=== PATIENT | female | born 1975 | race Caucasian/White ===

== ENCOUNTER 2022-11-26 13:49 | Emergency (ER) | payer OTHER ==
[2022-11-26 13:55] VITALS: BP 170/98; PULSE 97; RESP 18; TEMP 97.5
[2022-11-26] MEDS ORDERED: FUROSEMIDE 10 MG/ML 4 ML VIAL IV STA (16:28)
[2022-11-26 17:51] LABS: Basophils % (A) 0 %; Eosinophils # (A) 0.2 k/uL (0-0.7); Eosinophils % (A) 2 %; HCT 35.2 % (34.0-46.0); HGB 11.1 gm/dL (11.4-16.0); Lymphocytes % (A) 24 %; MCH 24.2 pg (25.0-35.0); MCHC 31.6 g/dL (31.0-37.0); MCV 76.7 fL (80.0-100.0); Mean Platelet Volume 6.9; Microcytosis Slight; Monocytes # (A) 0.5 k/uL (0-1.0); Monocytes % (A) 7 %; Neutrophils # (A) 5.4 k/uL (1.3-7.7); Neutrophils % (A) 64 %; Platelet Count 324 k/uL (150-450); RBC 4.58 m/uL (3.80-5.40); RDW 15.7 % (11.5-15.5); WBC 8.3 k/uL (3.8-10.6)
[2022-11-26 17:59] LABS: Albumin 4.1 g/dL (3.5-5.0); Calcium 9.1 mg/dL (8.4-10.2); Potassium 4.3 mmol/L (3.5-5.1); Total Bilirubin 0.3 mg/dL (0.2-1.3); Total Protein 7.3 g/dL (6.3-8.2)
--- NOTE | 2022-11-26 18:08 | ED ---
General Adult HPI - General Chief complaint: Extremity Injury, Lower Stated complaint: Leg Swelling Time Seen by Provider: 11/26/22 16:21 Source: patient, RN notes reviewed Mode of arrival: EMS Limitations: no limitations - History of Present Illness Initial comments: 47-year-old female with no significant past medical history presents the emergency department with bilateral leg swelling. She noticed her symptoms started approximately a week and half ago. She reports that she presented to the ED today because he has not gotten better. She denies any trauma or injury. She denies any chest pain, shortness of breath, dyspnea, abdominal pain, nausea, vomiting. - Related Data Allergies Allergy/AdvReac Type Severity Reaction Status Date / Time No Known Allergies Allergy Verified 11/26/22 13:55 Review of Systems ROS Statement: Those systems with pertinent positive or pertinent negative responses have been documented in the HPI. ROS Other: All systems not noted in ROS Statement are negative. Past Medical History Past Medical History: No Reported History Past Surgical History: No Surgical Hx Reported Past Psychological History: Anxiety Smoking Status: Current every day smoker Past Alcohol Use History: None Reported Past Drug Use History: None Reported General Exam Limitations: no limitations General appearance: alert, in no apparent distress Head exam: Present: atraumatic, normocephalic, normal inspection Eye exam: Present: normal appearance, PERRL, EOMI. Absent: scleral icterus, conjunctival injection, periorbital swelling ENT exam: Present: normal exam, mucous membranes moist Neck exam: Present: normal inspection. Absent: tenderness, meningismus, lymphadenopathy Respiratory exam: Present: normal lung sounds bilaterally. Absent: respiratory distress, wheezes, rales, rhonchi, stridor Cardiovascular Exam: Present: regular rate, normal rhythm, normal heart sounds. Absent: systolic murmur, diastolic murmur, rubs, gallop, clicks GI/Abdominal exam: Present: soft, normal bowel sounds. Absent: distended, tenderness, guarding, rebound, rigid Extremities exam: Present: normal inspection, full ROM, normal capillary refill, other (bilateral lower extremity edema, DT/PT pulses 2+ bilaterally abdomen sign negative). Absent: tenderness, pedal edema, joint swelling, calf tenderness Back exam: Present: normal inspection Neurological exam: Present: alert, oriented X3, CN II-XII intact Psychiatric exam: Present: normal affect, normal mood Skin exam: Present: warm, dry, intact, normal color. Absent: rash Course Vital Signs 11/26/22 13:53 Temperature 97.5 F L Pulse Rate 97 Respiratory 18 Rate Blood Pressure 170/98 O2 Sat by Pulse 98 Oximetry - Reevaluation(s) Reevaluation #1: 11/26/22 18:07 Patient notified provider that she would like to use AGAINST MEDICAL ADVICE. Medical Decision Making - Lab Data Result diagrams: 11/26/22 17:34 11/26/22 17:34 Lab Results 11/26/22 11/26/22 11/26/22 Range/Units 17:34 17:34 17:34 WBC 8.3 (3.8-10.6) k/uL RBC 4.58 (3.80-5.40) m/uL Hgb 11.1 L (11.4-16.0) gm/dL Hct 35.2 (34.0-46.0) % MCV 76.7 L (80.0-100.0) fL MCH 24.2 L (25.0-35.0) pg MCHC 31.6 (31.0-37.0) g/dL RDW 15.7 H (11.5-15.5) % Plt Count 324 (150-450) k/uL MPV 6.9 Neutrophils % 64 % Lymphocytes % 24 % Monocytes % 7 % Eosinophils % 2 % Basophils % 0 % Neutrophils # 5.4 (1.3-7.7) k/uL Lymphocytes # 2.0 (1.0-4.8) k/uL Monocytes # 0.5 (0-1.0) k/uL Eosinophils # 0.2 (0-0.7) k/uL Basophils # 0.0 (0-0.2) k/uL Microcytosis Slight PT 9.7 (9.0-12.0) sec INR 0.9 (<1.2) APTT 22.1 (22.0-30.0) sec Sodium 138 (137-145) mmol/L Potassium 4.3 (3.5-5.1) mmol/L Chloride 105 (98-107) mmol/L Carbon Dioxide 26 (22-30) mmol/L Anion Gap 7 mmol/L BUN 19 H (7-17) mg/dL Creatinine 0.95 (0.52-1.04) mg/dL Est GFR (CKD-EPI)AfAm 84 (>60 ml/min/1.73 sqM) Est GFR (CKD-EPI)NonAf 73 (>60 ml/min/1.73 sqM) Glucose 98 (74-99) mg/dL Calcium 9.1 (8.4-10.2) mg/dL Total Bilirubin 0.3 (0.2-1.3) mg/dL AST 26 (14-36) U/L ALT 28 (4-34) U/L Alkaline Phosphatase 55 (38-126) U/L Troponin I (0.000-0.034) ng/mL NT-Pro-B Natriuret Pep pg/mL Total Protein 7.3 (6.3-8.2) g/dL Albumin 4.1 (3.5-5.0) g/dL 11/26/22 11/26/22 Range/Units 17:34 17:34 WBC (3.8-10.6) k/uL RBC (3.80-5.40) m/uL Hgb (11.4-16.0) gm/dL Hct (34.0-46.0) % MCV (80.0-100.0) fL MCH (25.0-35.0) pg MCHC (31.0-37.0) g/dL RDW (11.5-15.5) % Plt Count (150-450) k/uL MPV Neutrophils % % Lymphocytes % % Monocytes % % Eosinophils % % Basophils % % Neutrophils # (1.3-7.7) k/uL Lymphocytes # (1.0-4.8) k/uL Monocytes # (0-1.0) k/uL Eosinophils # (0-0.7) k/uL Basophils # (0-0.2) k/uL Microcytosis PT (9.0-12.0) sec INR (<1.2) APTT (22.0-30.0) sec Sodium (137-145) mmol/L Potassium (3.5-5.1) mmol/L Chloride (98-107) mmol/L Carbon Dioxide (22-30) mmol/L Anion Gap mmol/L BUN (7-17) mg/dL Creatinine (0.52-1.04) mg/dL Est GFR (CKD-EPI)AfAm (>60 ml/min/1.73 sqM) Est GFR (CKD-EPI)NonAf (>60 ml/min/1.73 sqM) Glucose (74-99) mg/dL Calcium (8.4-10.2) mg/dL Total Bilirubin (0.2-1.3) mg/dL AST (14-36) U/L ALT (4-34) U/L Alkaline Phosphatase (38-126) U/L Troponin I <0.012 (0.000-0.034) ng/mL NT-Pro-B Natriuret Pep 75 pg/mL Total Protein (6.3-8.2) g/dL Albumin (3.5-5.0) g/dL Disposition Clinical Impression: Leg swelling Disposition: Left Against Medical Advice Condition: Undetermined Is patient prescribed a controlled substance at d/c from ED?: No Referrals: None,Stated [Primary Care Provider] - 1-2 days Time of Disposition: 18:08
[2022-11-26 18:17] LABS: INR 0.9 (<1.2); Partial Thromboplastin Time 22.1 sec (22.0-30.0); Prothrombin Time 9.7 sec (9.0-12.0)
== END 2022-11-26 18:08 | disposition left against medical advice (07) ==
LOC: EC 13:49
DX: M79.89 Other specified soft tissue disorders (principal); F41.9 Anxiety disorder, unspecified; F17.200 Nicotine dependence, unspecified, uncomplicated; Z53.29 Procedure and treatment not carried out because of patient's decision for other reasons
CPT/HCPCS: 36415; 83880; 80053; 84484; 85025; 85610; 85730; 99283; 96374; J1940

== ENCOUNTER 2024-03-06 17:18 | Emergency (ER) | payer OTHER ==
[2024-03-06 17:24] VITALS: RESP 18; TEMP 98.6
--- NOTE | 2024-03-06 18:06 | ED ---
Upper Extremity HPI - General Chief Complaint: Extremity Injury, Upper Stated Complaint: R Arm Pain Time Seen by Provider: 03/06/24 17:32 Source: patient, RN notes reviewed Mode of arrival: ambulatory Limitations: no limitations - History of Present Illness Initial Comments: This is a 48-year-old female presents emergency department chief complaint of ri ght upper extremity paresthesias of the hands over the past few weeks. Patient states that she is also noticing loss of motor function of the right hand. States that the paresthesias extremity. She denies any recent injury or trauma to the right upper extremity. She denies fevers chest pain or pressure, dizziness, lightheadedness. He denies personal history of AR, CVA, blood clots. - Related Data Allergies Allergy/AdvReac Type Severity Reaction Status Date / Time No Known Allergies Allergy Verified 03/06/24 17:23 Review of Systems ROS Statement: Those systems with pertinent positive or pertinent negative responses have been documented in the HPI. ROS Other: All systems not noted in ROS Statement are negative. Past Medical History Past Medical History: No Reported History Past Surgical History: No Surgical Hx Reported Past Psychological History: Anxiety, Bipolar Smoking Status: Current every day smoker Past Alcohol Use History: None Reported Past Drug Use History: None Reported General Exam Limitations: no limitations General appearance: alert, in no apparent distress Head exam: Present: atraumatic, normocephalic, normal inspection Eye exam: Present: normal appearance, PERRL, EOMI. Absent: scleral icterus, conjunctival injection, periorbital swelling ENT exam: Present: normal exam, mucous membranes moist Neck exam: Present: normal inspection. Absent: tenderness, meningismus, lymphadenopathy Respiratory exam: Present: normal lung sounds bilaterally. Absent: respiratory distress, wheezes, rales, rhonchi, stridor Cardiovascular Exam: Present: regular rate, normal rhythm, normal heart sounds. Absent: systolic murmur, diastolic murmur, rubs, gallop, clicks GI/Abdominal exam: Present: soft, normal bowel sounds. Absent: distended, tenderness, guarding, rebound, rigid Right Hand Wrist exam: Present: other (parasthesias) Neuro motor exam: Present: wrist extension intact Vascular: Present: normal capillary refill. Absent: vascular compromise Back exam: Present: normal inspection Neurological exam: Present: other (right hand parasthesias with radiation into the antecubtial fossa. ) Skin exam: Present: warm, dry, intact, normal color. Absent: rash Course Vital Signs 03/06/24 03/06/24 17:19 19:00 Temperature 98.6 F Pulse Rate 103 H 95 Respiratory 18 18 Rate Blood Pressure 181/83 147/90 O2 Sat by Pulse 99 100 Oximetry Medical Decision Making - Medical Decision Making Was pt. sent in by a medical professional or institution (ENZO Whaley, COMPENSATION SPECIALIST, urgent care, hospital, or halfway...) When possible be specific @ -No Did you speak to anyone other than the patient for history (EMS, parent, family, police, friend...)? What history was obtained from this source @ -No Did you review nursing and triage notes (agree or disagree)? Why? @ -I reviewed and agree with nursing and triage notes Were old charts reviewed (outside hosp., previous admission, EMS record, old EKG, old radiological studies, urgent care reports/EKG's, halfway records)? Report findings @ -No old charts were reviewed Differential Diagnosis (chest pain, altered mental status, abdominal pain women, abdominal pain men, vaginal bleeding, weakness, fever, dyspnea, syncope, headache, dizziness, GI bleed, back pain, seizure, CVA, palpatations, mental health, musculoskeletal)? @ -ulnar nerve compression, radial nerve compression, carpal tunnel syndrome, cervical radiculopathy, cirrhosis, increase EKG interpreted by me (3pts min.). @ -None X-rays interpreted by me (1pt min.). @ -X-ray of the right hand and right forearm reveals no evidence for acute osseous abnormalities. CT interpreted by me (1pt min.). @ -None done U/S interpreted by me (1pt. min.). @ -None done What testing was considered but not performed or refused? (CT, X-rays, U/S, labs)? Why? @ -None What meds were considered but not given or refused? Why? @ -None Did you discuss the management of the patient with other professionals (professionals i.e. ENZO Whaley, COMPENSATION SPECIALIST, lab, RT, psych nurse, social problems specialist, wet end operator, teacher, risk officer, case making machine operator)? Give summary @ -No Was smoking cessation discussed for >3mins.? @ -No Was critical care preformed (if so, how long)? @ -No Were there social determinants of health that impacted care today? How? (Homelessness, low income, unemployed, alcoholism, drug addiction, transportation, low edu. Level, literacy, decrease access to med. care, senior care, rehab)? @ -No Was there de-escalation of care discussed even if they declined (Discuss DNR or withdrawal of care, Hospice)? DNR status @ -No What co-morbidities impacted this encounter? (DM, HTN, Smoking, COPD, CAD, Cancer, CVA, ARF, Chemo, Hep., AIDS, mental health diagnosis, sleep apnea, morbid obesity)? @ -None Was patient admitted / discharged? Hospital course, mention meds given and route, prescriptions, significant lab abnormalities, going to OR and other pertinent info. @ -Discharge. 48 year old female Presenting with right hand paresthesias. On examination patient has good strength bilaterally. Her sensation is intact to the right forearm. Patient is s/p procedure to the right hand. She is mild motor deficits of the right. No signs of infection of the hand. Hand is held in relax position examination. She will be evaluated via x-rays. X-rays not concerning for acute process. Patient was provided with a referral to soil fertility specialist for further evaluation. All questions answered at bedside and strict return parameters discussed with the patient she is verbalized understanding. Case discussed with Dr. Walton Undiagnosed new problem with uncertain prognosis? @ -No Drug Therapy requiring intensive monitoring for toxicity (Heparin, Nitro, Insulin, Cardizem)? @ -No Were any procedures done? @ -No Diagnosis/symptom? @ -Paresthesias of right hand Acute, or Chronic, or Acute on Chronic? @ -Acute Uncomplicated (without systemic symptoms) or Complicated (systemic symptoms)? @ -Uncomplicated Side effects of treatment? @ -No Exacerbation, Progression, or Severe Exacerbation? @ -No Poses a threat to life or bodily function? How? (Chest pain, USA, AR, pneumonia, PE, COPD, DKA, ARF, appy, cholecystitis, CVA, Diverticulitis, Homicidal, Suicidal, threat to staff... and all critical care pts) @ -No Disposition Clinical Impression: Ulnar nerve compression, Radial nerve compression, Paresthesia of hand Disposition: HOME SELF-CARE Condition: Good Instructions (If sedation given, give patient instructions): Paresthesia (ED) Additional Instructions: Return to the emergency department if your symptoms worsen or do not improve. Follow-up with provided soil fertility specialist for further evaluation. Is patient prescribed a controlled substance at d/c from ED?: No Referrals: None,Stated [Primary Care Provider] - 1-2 days Mark Shepherd DO [Doctor of Osteopathic Medicine] - 1-2 days Time of Disposition: 19:13
--- NOTE | 2024-03-06 18:39 | XR ---
EXAMINATION TYPE: XR forearm RT, XR hand complete RT DATE OF EXAM: 03/06/2024 6:31 PM CLINICAL INDICATION:Female, 48 years old with history of pain, injury; [facility] COMPARISON: None TECHNIQUE: XR forearm RT, XR hand complete RT; forearm was examined in AP and lateral projections. Fr ontal lateral and oblique views of the hand. FINDINGS: No acute osseous pathology, soft tissue swelling or joint dislocations are seen. IMPRESSION: No evidence of acute fracture.
[2024-03-06 19:01] VITALS: BP 147/90; PULSE 95
== END 2024-03-06 19:34 | disposition home or self-care (01) ==
LOC: EC 17:18
DX: G56.21 Lesion of ulnar nerve, right upper limb (principal); G58.8 Other specified mononeuropathies; F17.200 Nicotine dependence, unspecified, uncomplicated
CPT/HCPCS: 99283